=== PATIENT | female | born 1995 | race Caucasian/White ===

== ENCOUNTER 2022-05-16 23:34 | Emergency (ER) | payer OTHER ==
[~2022-05-16] VITALS: Ht 160 cm; Wt 72.7 kg
[2022-05-17] MEDS ORDERED: TRAZ-257 PO (03:38)
[2022-05-17 05:58] VITALS: BP 113/72
[2022-05-17] MEDS ORDERED: IBUPROFEN 600 MG TABLET PO ONE (06:15)
== END 2022-05-17 06:11 | disposition home or self-care (01) ==
LOC: EMS 23:35
DX: S60.222A Contusion of left hand, initial encounter (principal); F11.10 Opioid abuse, uncomplicated; F15.10 Other stimulant abuse, uncomplicated; F17.210 Nicotine dependence, cigarettes, uncomplicated; W22.8XXA Striking against or struck by other objects, initial encounter; Y93.89 Activity, other specified; Y92.89 Other specified places as the place of occurrence of the external cause; Y99.8 Other external cause status
CPT/HCPCS: 99283